=== PATIENT | female | born 1970 | race Caucasian/White ===

== ENCOUNTER 2016-10-07 00:14 | Emergency (ER) | payer OTHER ==
[~2016-10-07] VITALS: Ht 149.9 cm; Wt 78.9 kg
[2016-10-07] MEDS ORDERED: MICARDIS40 MG ORAL (00:24)
[2016-10-07] MEDS ORDERED: TENORMIN50 MG ORAL (00:24)
[2016-10-07 00:33] VITALS: BP 110/74
[2016-10-07] MEDS ORDERED: Norco 5mg/325mg tab ORAL ONE (00:45)
[2016-10-07 01:40] VITALS: BP 115/72
[2016-10-07] MEDS ORDERED: HYDROCODON-ACE1 EA15 ORAL (01:41)
--- NOTE | 2016-10-07 01:41 | Emergency Room Report ---
History of Present Illness General Chief Complaint: Multiple Trauma/Fall Source: Patient Present Illness HPI Is a 46-year-old female with no past medical history. She presents with complaint of head injury. She was drinking tonight and fell backward. She hit the back of her head on the table, then the chair, in the floor. She had a brief loss of consciousness. Complaining of pain to the back of her head. 10 out of 10. No neck pain. No nausea no vomiting. No other complaint. Came in by EMS. Allergies: Coded Allergies: CODEINE (Verified Allergy, Unknown, 10/07/16) MORPHINE (Verified Allergy, Unknown, 10/07/16) Patient History Past Medical History: see triage record, old chart reviewed Past Surgical History: other Pertinent Family History: none Social History: Reports: alcohol use, Denies: smoking Now: No Immunizations: other Reviewed Nursing Documentation: PMH: Agreed, PSxH: Agreed Nursing Documentation-PMH Hx Hypertension: Yes Review of Systems Eye: Denies: blurred vision, eye pain ENT: Denies: ear pain, nose congestion, throat swelling Respiratory: Denies: cough, shortness of breath Cardiovascular: Denies: chest pain, palpitations Gastrointestinal: Denies: abdominal pain, diarrhea, nausea, vomiting Musculoskeletal: Denies: back pain, joint pain Skin: Denies: rash Neurological: Denies: headache, numbness Endocrine: Denies: increased thirst, increased urine Hematologic/Lymphatic: Denies: easy bruising All Other Systems: negative except mentioned in HPI Physical Exam Vital Signs Date Time Temp Pulse Resp B/P Pulse Ox O2 Delivery O2 Flow Rate FiO2 10/07/16 00:18 98.8 110 18 110/74 94 Room Air vitals unremarkable Sp02 EP Interpretation: reviewed, normal General Appearance: well appearing, no apparent distress, alert Head: normocephalic, other - Tenderness over the occiput. Mild Hematoma Eyes: bilateral eye EOMI, bilateral eye PERRL ENT: hearing grossly normal, normal pharynx Neck: full range of motion, supple, no meningismus Respiratory: chest non-tender, lungs clear, normal breath sounds Cardiovascular #1: regular rate, rhythm, no murmur Gastrointestinal: normal bowel sounds, non tender, no mass, no organomegaly, no bruit, non-distended Musculoskeletal: back normal, gait/station normal, normal range of motion Neurologic: alert, oriented x3 Psychiatric: mood/affect normal Skin: warm/dry Medical Decision Making Diagnostic Impression: Primary Impression: Head injury, acute, with loss of consciousness Qualified Codes: S06.9X1A - Unspecified intracranial injury with loss of consciousness of 30 minutes or less, initial encounter ER Course Patient with head injury. No evidence of intracranial bleed or skull fracture. We'll discharge home. CT scan negative. CT/MRI/US Diagnostic Results CT/MRI/US Diagnostic Results : Imaging Test Ordered: CT head Impression negative per radiologist Last Vital Signs Date Time Temp Pulse Resp B/P Pulse Ox O2 Delivery O2 Flow Rate FiO2 10/07/16 00:33 98.8 18 110/74 94 Room Air 10/07/16 00:18 110 Status: improved Disposition: HOME, SELF-CARE Condition: Stable Scripts Hydrocodone/Acetaminophen 5-325* (HYDROCODONE/ACETAMINOPHEN 5-325*) 1 Each Tablet 1 TAB ORAL Q6H Y for For Pain, #15 TAB 0 Refills Prov: DAVID MCCAIN M.D. 10/07/16 Referrals: NON PHYSICIAN (PCP) Additional Instructions: Followup with your DrBalaji in 7 days. Return if symptom worsen. DAVID MCCAIN M.D. Oct 07, 2016 01:41
[2016-10-07 01:51] VITALS: BP 115/72
--- NOTE | 2016-10-07 09:53 | Diagnostic Imaging Report ---
Indication: Head trauma and pain Technique: Continuous helical CT scanning of the head was performed utilizing automated exposure control without intravenous contrast material. Axial and coronal reconstructions were obtained. Comparison: None CT dose: Total DLP 1386 mGycm; CTDI vol 70.4 mGy Findings: There is no acute intracranial hemorrhage, mass effect or cortical edema. The ventricles, cisterns and sulci are within normal limits. The posterior fossa and fourth ventricle are unremarkable. Sellar and suprasellar regions are grossly unremarkable. Visualized mastoid air cells and paranasal sinuses are unremarkable. No focal lesions of the bony calvarium or soft tissues of the scalp are seen. Impression: No evidence of acute intracranial hemorrhage, mass effect or cortical edema. MRI may be obtained for more sensitive evaluation as clinically indicated. The CT scanner at [facility] is accredited by the [employer] and the scans are performed using protocols designed to limit radiation exposure to as low as reasonably achievable to attain images of sufficient resolution adequate for diagnostic evaluation.
== END 2016-10-07 01:52 | disposition home or self-care (01) ==
LOC: EDBD 00:14 → EMR 00:28
DX: S06.9X1A Unspecified intracranial injury with loss of consciousness of 30 minutes or less, initial encounter (principal); S00.03XA Contusion of scalp, initial encounter; W19.XXXA Unspecified fall, initial encounter; Y92.9 Unspecified place or not applicable; I10 Essential (primary) hypertension
CPT/HCPCS: 70450; 99284